=== PATIENT | male | born 1935 | race African-American/Black ===

== ENCOUNTER 2022-11-22 09:28 | Emergency (ER) | payer SELFPAY ==
[~2022-11-22] VITALS: Ht 170.2 cm; Wt 64.0 kg
[2022-11-22 09:31] VITALS: BP 152/44; PULSE 61; RESP 16; TEMP 98.7; O2SAT 98
[2022-11-22 09:56] LABS: HEMATOCRIT 32.1 % (42.0-52.0); HEMOGLOBIN 11.1 g/dL (14.0-18.0); MEAN CORPUSCULAR HEMOGLOBIN 32.7 pg (28.0-32.0); MEAN CORPUSCULAR VOLUME 94.4 fL (80.0-94.0); PLATELET 241 x1000/uL (130-400); RED CELL DISTRIBUTION WIDTH 13.9 % (11.6-14.6)
[2022-11-22 10:12] LABS: CHLORIDE 105 mEq/L (98-107)
== END 2022-11-22 11:18 | disposition home or self-care (01) ==
LOC: ER 09:28
DX: T67.5XXA Heat exhaustion, unspecified, initial encounter (principal); Z95.0 Presence of cardiac pacemaker; X58.XXXA Exposure to other specified factors, initial encounter; Y93.89 Activity, other specified; Y92.89 Other specified places as the place of occurrence of the external cause; Y99.8 Other external cause status
CPT/HCPCS: 36415; 80048; 84484; 85027; 99283

== ENCOUNTER 2024-03-16 13:27 | Emergency (ER) | payer OTHER, MEDICAID ==
[~2024-03-16] VITALS: Ht 175.3 cm; Wt 82.0 kg
[2024-03-16 13:30] VITALS: O2SAT 100
[2024-03-16 14:55] LABS: BASOPHILS % 0.8 % (0.0-2.0); EOSINOPHILS % 4.8 % (0.0-5.0); HEMATOCRIT. 32.1 % (42.0-52.0); LYMPHOCYTES % 26.9 % (20.0-50.0); MEAN CORPUSCULAR HEMOGLOBIN 33.4 pg (28.0-32.0); MEAN CORPUSCULAR HGB CONC 34.1 g/dL (31.0-37.0); MEAN CORPUSCULAR VOLUME 97.8 fL (80.0-94.0); MEAN PLATELET VOLUME 8.9 fl (7.4-10.4); MONOCYTES % 10.6 % (2.0-8.0); NEUTROPHILS % 56.9 % (40.0-76.0); PLATELET 238 x1000/uL (130-400); RED BLOOD CELL COUNT 3.28 mill/uL (4.7-6.1); RED CELL DISTRIBUTION WIDTH 13.4 % (11.6-14.6); WHITE BLOOD COUNT 6.2 x1000/uL (4.5-11.0)
[2024-03-16 15:05] LABS: CHLORIDE 102 mEq/L (98-107); POTASSIUM 3.8 mEq/L (3.5-5.1); SODIUM 138 mEq/L (136-145)
[2024-03-16 15:06] LABS: CALCIUM 8.8 mg/dL (8.7-10.4); CARBON DIOXIDE 30 mEq/L (21-32)
[2024-03-16 15:11] LABS: CREATININE 1.6 mg/dL (0.6-1.3); GLUCOSE 90 mg/dL (70-105); TROPONIN I HIGH SENSITIVITY 20 ng/L (3.0-53); UREA NITROGEN BLOOD 28 mg/dL (9-23)
[2024-03-16 18:09] VITALS: BP 120/70; PULSE 60; RESP 16; TEMP 36.50292; O2SAT 100
== END 2024-03-16 19:17 | disposition short-term general hospital (02) ==
LOC: ER 13:27 → CANBEDREQ 17:21 → ER 19:17
DX: R55 Syncope and collapse (principal); I10 Essential (primary) hypertension
CPT/HCPCS: 36415; 71045; 80048; 83880; 84484; 85025; 93005; 99285